=== PATIENT | female | born 2000 | race American Indian/Alaskan Native ===

== ENCOUNTER 2021-08-31 13:04 | Emergency (ER) | payer SELFPAY ==
[2021-08-31 14:02] VITALS: BP 133/79
[2021-08-31 16:26] LABS: Bilirubin,Urine NEG (Negative); Blood,Urine NEG (Negative); Color,Urine Yellow (Yellow); Protein,Urine <15 mg/dL mg/dL (Negative); Urobilinogen,Urine < 2.0 mg/dL (<2.0)
[2021-08-31 16:33] LABS: RBC,Urine < 1.0 /HPF (0.0-6.0); WBC,Urine < 1.0 /HPF (0.0-6.0)
[2021-08-31 16:34] LABS: HCG Qualitative,Urine Negative (Negative)
[2021-08-31 16:52] LABS: Bacteria,Urine 1+ /HPF (Negative); Mucus,Urine 1+ /HPF
== END 2021-08-31 18:00 | disposition left against medical advice (07) ==
LOC: ED 13:04
DX: R11.0 Nausea (principal); Z53.21 Procedure and treatment not carried out due to patient leaving prior to being seen by health care provider
CPT/HCPCS: 81001; 81025

== ENCOUNTER 2021-10-17 22:22 | Emergency (ER) | payer SELFPAY ==
[2021-10-17 22:58] VITALS: BP 131/71
== END 2021-10-19 09:51 | disposition left against medical advice (07) ==
LOC: ED 22:22
DX: G43.909 Migraine, unspecified, not intractable, without status migrainosus (principal); Z53.21 Procedure and treatment not carried out due to patient leaving prior to being seen by health care provider